=== PATIENT | male | born 1955 | race Caucasian/White ===

== ENCOUNTER 2020-09-05 13:33 | Outpatient (CLI) | payer OTHER, SELFPAY | END 2020-09-05 13:34 | disposition home or self-care (01) | LOC: CSHWCC 13:33 | PROVIDERS: ATTEND Nurse Practitioner Family | DX: K94.09 Other complications of colostomy (principal); K56.609 Unspecified intestinal obstruction, unspecified as to partial versus complete obstruction; K57.32 Diverticulitis of large intestine without perforation or abscess without bleeding; N40.0 Benign prostatic hyperplasia without lower urinary tract symptoms; I10 Essential (primary) hypertension; E03.9 Hypothyroidism, unspecified | CPT/HCPCS: 99203; G0463 ==

== ENCOUNTER 2020-12-07 11:05 | Outpatient (CLI) | payer OTHER | END 2020-12-07 11:06 | disposition home or self-care (01) | LOC: CSHWCC 11:05 | PROVIDERS: ATTEND Nurse Practitioner Family | DX: S31.104D Unspecified open wound of abdominal wall, left lower quadrant without penetration into peritoneal cavity, subsequent encounter (principal); K94.09 Other complications of colostomy; K56.609 Unspecified intestinal obstruction, unspecified as to partial versus complete obstruction; K68.11 Postprocedural retroperitoneal abscess; E03.9 Hypothyroidism, unspecified; I10 Essential (primary) hypertension; K57.32 Diverticulitis of large intestine without perforation or abscess without bleeding; N40.0 Benign prostatic hyperplasia without lower urinary tract symptoms | CPT/HCPCS: 99212; G0463 ==